=== PATIENT | female | born 1975 | race African-American/Black ===

== ENCOUNTER 2016-12-06 04:13 | Emergency (ER) | payer OTHER ==
[2016-12-06 04:30] VITALS: BP 162/100; PULSE 81; TEMP 98.1; BMI 34.7
[2016-12-06] MEDS ORDERED: FLUORESCEIN NA 1 EA STRIP ONE (04:48)
[2016-12-06] MEDS ORDERED: TETRACAINE 0.5% OPHTH SOLN 2 ML BOTTLE ONE (04:49)
[2016-12-06] MEDS ORDERED: GENTAMICIN SULFATE 0.3% OPHTHALMIC (EYE DROPS) 5ML BOTTLE OS ONE (04:58)
--- NOTE | 2016-12-06 04:58 | PDOC ---
[id number] No Limitations - History of Present Illness Initial Comments: 12/06/16 06:01 The patient is a 40-year-old female, with a significant past medical history of DM, kidney stones, and gallstones, who presents to the emergency department with dry eyes that began a day ago. The patient reports she forgot to put her eye drops in yesterday, before her eyes became itchy and dry. She states that she has been rubbing her eyes as a result, and her left eye has become swollen. The patient states she used artificial tears for these symptoms with no alleviation. The patient states she has experienced frequent episodes of erythematous and itchy eyes and consulted with her opthalmologist, Dr. Daniels, who said it was due to dryness. She reports difficulty sleeping and no change in appetite. The patient denies any recent travel. The patient denies any sick contacts. The patient denies fever, chills, cough, headache, and dizziness. Allergies: Penicillins Apprise Counselor: Dr. Daniels <Sabrina Norris - Last Filed: 12/06/16 06:01> <Marii Vasquez - Last Filed: 12/07/16 00:35> - General Chief Complaint: Eye Problem Stated Complaint: EYE PROBLEM Time Seen by Provider: 12/06/16 04:29 Past History <Sabrina Norris - Last Filed: 12/06/16 06:01> - Psycho/Social/Smoking Cessation Hx Suicidal Ideation: No Smoking History: Never smoked Have you smoked in the past 12 months: Yes Number of Cigarettes Smoked Daily: 10 'Breaking Loose' booklet given: 11/03/12 Hx Alcohol Use: No Drug/Substance Use Hx: No <Marii Vasquez - Last Filed: 12/07/16 00:35> - Past Medical History Allergies/Adverse Reactions: Allergies Allergy/AdvReac Type Severity Reaction Status Date / Time Penicillins Allergy Verified 12/06/16 04:25 Home Medications: Ambulatory Orders Amlodipine Besylate 10 mg PO DAILY 12/06/16 Hydrochlorothiazide [Hctz -] 25 mg PO DAILY 12/06/16 Metformin HCl [Glucophage] 500 mg PO BID 12/06/16 Ofloxacin 0.3% Ophth Soln [Ocuflox -] 1 drop OS Q6H #1 drops MDD 4 12/06/16 Review of Systems - Review of Systems Able to Perform ROS?: Yes Comments:: 12/06/16 06:02 GENERAL/CONSTITUTIONAL: No fever or chills. No weakness. HEAD, EYES, EARS, NOSE AND THROAT: +Dry, itchy, erythematous eyes. No change in vision. No ear pain or discharge. No sore throat. CARDIOVASCULAR: No chest pain or shortness of breath. RESPIRATORY: No cough, wheezing, or hemoptysis. GASTROINTESTINAL: No nausea, vomiting, diarrhea or constipation. GENITOURINARY: No dysuria, frequency, or change in urination. MUSCULOSKELETAL: No joint or muscle swelling or pain. No neck or back pain. SKIN: No rash NEUROLOGIC: No headache, vertigo, loss of consciousness, or change in strength/ sensation. ENDOCRINE: No increased thirst. No abnormal weight change. HEMATOLOGIC/LYMPHATIC: No anemia, easy bleeding, or history of blood clots. ALLERGIC/IMMUNOLOGIC: No hives or skin allergy. <Sabrina Norris - Last Filed: 12/06/16 06:01> *Physical Exam - Vital Signs Last Vital Signs Temp Pulse Resp BP Pulse Ox 98.1 F 81 19 162/100 98 12/06/16 04:28 12/06/16 04:28 12/06/16 04:28 12/06/16 04:28 12/06/16 04:28 - Physical Exam Comments: 12/06/16 06:02 GENERAL: The patient is awake, alert, and fully oriented, in no acute distress. +Obese HEAD: Normal with no signs of trauma. EYES:+Minimal redness of left eye conjunctiva. Pupils equal, round and reactive to light, extraocular movements intact, sclera anicteric. ENT: Ears normal, nares patent, oropharynx clear without exudates. Moist mucous membranes. NECK: Normal range of motion, supple without lymphadenopathy, JVD, or masses. LUNGS: Breath sounds equal, clear to auscultation bilaterally. No wheeze/ crackles. HEART: Regular rate and rhythm, normal S1 and S2 without murmur or rub. ABDOMEN: Soft/nontender/nondistended. BS wnl. No guarding or rebound. No palpable masses. No hepatosplenomegaly. EXTREMITIES: Normal range of motion, no edema. No clubbing or cyanosis. No cords, erythema, or tenderness. NEUROLOGICAL: Cranial nerves II through XII grossly intact. Normal speech, normal gait. PSYCH: Normal mood, normal affect. SKIN: Warm, Dry, normal turgor, no rashes or lesions noted. <Sabrina Norris - Last Filed: 12/06/16 06:01> - Vital Signs Last Vital Signs Temp Pulse Resp BP Pulse Ox 98.1 F 81 19 162/100 98 12/06/16 04:28 12/06/16 04:28 12/06/16 04:28 12/06/16 04:28 12/06/16 04:28 <Marii Vasquez - Last Filed: 12/07/16 00:35> ED Treatment Course - Medications Given in the ED: ED Medications Discontinued Medications Generic Name Dose Route Start Last Admin Trade Name Freq PRN Reason Stop Dose Admin Gentamicin Sulfate 1 drop 12/06/16 04:58 12/06/16 05:03 Gentamicin 0.3% Eye Drops - OS 12/06/16 04:59 1 drop ONCE ONE Administration <Sabrina Norris - Last Filed: 12/06/16 06:01> Medical Decision Making - Medical Decision Making 12/07/16 00:33 pt comes with conjuntivitis and states that she suffers with dry eyes and that she often itches her eyes so much that she ends up with corneal abrasions. She comes to make sure that she has no corneal abrasion. Her exam is normal. No fluorescine uptake. She will be treated with eyedrops for the conjunctivitis. <Marii Vasquez - Last Filed: 12/07/16 00:35> *DC/Admit/Observation/Transfer - Attestations Scribe Attestion: 12/06/16 06:02 Documentation prepared by Sabrina Norris, acting as medical science liaison for Marii Vasquez MD. <Sabrina Norris - Last Filed: 12/06/16 06:01> - Discharge Dispostion Admit: No <Marii Vasquez - Last Filed: 12/07/16 00:35> Diagnosis at time of Disposition: Conjunctivitis - Discharge Dispostion Disposition: HOME Condition at time of disposition: Stable - Referrals Referrals: Agueda Soria [Primary Care Provider] - - Patient Instructions Printed Discharge Instructions: Conjunctivitis
[2016-12-06] MEDS ORDERED: GENTAMICIN SULFATE 0.3% OPHTHALMIC (EYE DROPS) 5ML BOTTLE ONE (05:00)
== END 2016-12-06 05:06 | disposition home or self-care (01) ==
LOC: JER 04:13
DX: H10.33 Unspecified acute conjunctivitis, bilateral (principal); H04.123 Dry eye syndrome of bilateral lacrimal glands; E11.9 Type 2 diabetes mellitus without complications; Z79.84 Long term (current) use of oral hypoglycemic drugs; I10 Essential (primary) hypertension; F17.210 Nicotine dependence, cigarettes, uncomplicated
CPT/HCPCS: 99281-25

== ENCOUNTER 2016-12-06 14:11 | Emergency (ER) | payer OTHER ==
[2016-12-06 14:22] VITALS: BP 166/106; PULSE 92; TEMP 98.8
[2016-12-06] MEDS ORDERED: FLUORESCEIN NA 1 EA STRIP ONE ×2 (15:39→16:07)
--- NOTE | 2016-12-06 15:52 | PDOC ---
History of Present Illness - General Chief Complaint: Eye Problem Stated Complaint: LT EYE PAIN Time Seen by Provider: 12/06/16 15:06 History Source: Patient Exam Limitations: No Limitations - History of Present Illness Initial Comments: 12/06/16 15:32 My Chief Complaint: History of present illness: The patient is a 40-year-old female, with a significant past medical history of DM, kidney stones, and gallstones, dry eyes who presents to the emergency department with redness of left sclera and slight edema of left upper eyelid that started in early a.m. Patient reports that she was seen here was given tobramycin drops however patient reports that when she used her eye felt worse and left eyelid became slightly edematous. Patient also reports that she started to have photophobia, pain with blinking and tearing of her left eye. Patient usually say is Dr. Daniels for her eye condition. Timing/Duration: getting worse Severity: moderate (tearing and painful left eye with photophobia ) Associated Symptoms: reports: denies symptoms Past History - Past Medical History Allergies/Adverse Reactions: Allergies Allergy/AdvReac Type Severity Reaction Status Date / Time Penicillins Allergy Verified 12/06/16 14:18 Home Medications: Ambulatory Orders Amlodipine Besylate 10 mg PO DAILY 12/06/16 Hydrochlorothiazide [Hctz -] 25 mg PO DAILY 12/06/16 Metformin HCl [Glucophage] 500 mg PO BID 12/06/16 Ofloxacin 0.3% Ophth Soln [Ocuflox -] 1 drop OS Q6H #1 drops MDD 4 12/06/16 - Psycho/Social/Smoking Cessation Hx Suicidal Ideation: No Smoking History: Current every day smoker Have you smoked in the past 12 months: Yes Number of Cigarettes Smoked Daily: 3 Information on smoking cessation initiated: No 'Breaking Loose' booklet given: 11/03/12 Hx Alcohol Use: No Drug/Substance Use Hx: No Review of Systems - Review of Systems Able to Perform ROS?: Yes Constitutional: No: Symptoms Reported HEENTM: Yes: Eye Pain (left ), Tearing (left ), Other (photophobia). No: Blurred Vision, Recent change in vision, Double Vision Respiratory: No: Symptoms reported Cardiac (ROS): No: Symptoms Reported ABD/GI: No: Symptoms Reported : No: Symptoms Reported Musculoskeletal: No: Symptoms Reported Integumentary: Yes: Other (slight edema left upper eyelid) *Physical Exam - Vital Signs Last Vital Signs Temp Pulse Resp BP Pulse Ox 98.8 F 92 H 18 166/106 99 12/06/16 14:18 12/06/16 14:18 12/06/16 14:18 12/06/16 14:18 12/06/16 14:18 - Physical Exam General Appearance: Yes: Appropriately Dressed HEENT: positive: EOMI, PAYAL, TMs Normal, Photophobia (left eye), Other (left sclera injected, corneal abrasion noted laterally, minimal erythema left conjunctiva ) Neck: negative: Lymphadenopathy (R), Lymphadenopathy (L) Integumentary: positive: Swelling (left upper eyelid with minimal erythmea) Neurologic: positive: Alert, Normal Response, Responsive Procedures - Consent Consent obtained: From Patient - Eye Procedure Progress: 12/06/16 16:14 2 drops of Tetracaine 0.5% into left eye and used fluorescein stain and noted corneal abrasion left lateral eye Medical Decision Making - Medical Decision Making 12/06/16 15:52 The patient is a 40-year-old female, with a significant past medical history of DM, kidney stones, and gallstones, dry eyes who presents to the emergency department with redness of left sclera and slight edema of left upper eyelid that started in early a.m. Patient reports that she was seen here was given tobramycin drops however patient reports that when she used her eye felt worse and left eyelid became slightly edematous. Patient also reports that she started to have photophobia, pain with blinking and tearing of her left eye. Patient usually say is Dr. Daniels for her eye condition. Corneal abrasion left eye PLAN: ciprofloxacin 0.3% opth drop 1 drop now left eye than q 6 hrs for 5 days follow up with optholmologist as soon as possible 12/06/16 16:03 stop using gentamycin eye drops 12/06/16 16:14 12/06/16 16:15 12/06/16 16:15 *DC/Admit/Observation/Transfer Diagnosis at time of Disposition: Cornea abrasion Qualifiers: Encounter type: initial encounter Laterality: left Qualified Code(s): S05.02XA - Injury of conjunctiva and corneal abrasion without foreign body, left eye, initial encounter - Discharge Dispostion Disposition: HOME Condition at time of disposition: Stable - Prescriptions Prescriptions: Ofloxacin 0.3% Ophth Soln [Ocuflox -] 1 drop OS Q6H #1 drops MDD 4 - Referrals Referrals: Marva Porras MD [Primary Care Provider] - - Patient Instructions Additional Instructions: Use ciprofloxacin 0.3% ophthalmic drops 1 drop in left eye every 6 hours for 5 days Follow up with your rubber cutter and shape carver as soon as possible Return to emergency room if symptoms worsen stop using gentamycin eye drops Patient voiced understanding of discharge instructions and all questions were answered
[2016-12-06] MEDS ORDERED: CIPROFLOXACIN HCL 0.3% OPHTH 2.5ML BOTTLE ONE (15:59)
[2016-12-06] MEDS ORDERED: FLUORESCEIN NA 1 EA STRIP OS ONE (16:02)
[2016-12-07] MEDS ORDERED: CIPROFLOXACIN 0.3% EYE DROPS 5 ML BOTTLE OS SCH (10:00)
== END 2016-12-06 16:13 | disposition home or self-care (01) ==
LOC: JERFT 14:11
DX: S05.02XA Injury of conjunctiva and corneal abrasion without foreign body, left eye, initial encounter (principal); H04.123 Dry eye syndrome of bilateral lacrimal glands; F17.210 Nicotine dependence, cigarettes, uncomplicated; X58.XXXA Exposure to other specified factors, initial encounter; Y93.89 Activity, other specified; Y92.038 Other place in apartment as the place of occurrence of the external cause
CPT/HCPCS: 99281-25

== ENCOUNTER 2017-07-23 07:17 | Day surgery (SDC) | payer OTHER ==
[2017-07-21 14:55] VITALS: BMI 36.2
[2017-07-23] MEDS ORDERED: MIDAZOLAM HCL 2 MG/2 ML SINGLE DOSE VIAL ONE (09:09)
[2017-07-23] MEDS ORDERED: LIDOCAINE HCL 2% (20ML MULTI-DOSE VIAL) NR ONE (09:39)
[2017-07-23] MEDS ORDERED: BUPIVACAINE HCL/PF 0.5% (5MG/ML) 10 ML VIAL ONE (09:39)
[2017-07-23] MEDS ORDERED: LIDOCAINE HCL 1%, 10 MG/ML (20ML VIAL) IJ ONE (10:27)
[2017-07-23] MEDS ORDERED: CLINDAMYCIN PHOSPHATE 600 MG/4 ML VIAL IVPB ONE (10:30)
[2017-07-23] MEDS ORDERED: PROPOFOL 20 ML ONE (10:41)
[2017-07-23] MEDS: DEXAMETHASONE SOD PHOSPHATE 4 MG/1 ML VIAL ONE ×2 (10:48→10:59)
[2017-07-23] MEDS ORDERED: ONDANSETRON 4 MG/2 ML VIAL IVPUSH PRN (11:17)
[2017-07-23] MEDS ORDERED: oxyCODONE HCL 5 MG TABLET PO PRN (11:17)
[2017-07-23] MEDS ORDERED: KETOROLAC TROMETHAMINE 30 MG/1 ML VIAL IVPUSH ONE (11:17)
--- NOTE | 2017-07-23 11:28 | OP ---
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
[2017-07-23] MEDS ORDERED: LACTATED RINGERS SOLUTION 1,000 ML IV SCH (11:30)
[2017-07-23 11:51] VITALS: TEMP 98.2
[2017-07-23 13:50] VITALS: BP 147/94; PULSE 68
--- NOTE | 2017-07-26 14:55 | PATH ---
Surgical Pathology Report Patient Name: MICKIE DOE Med. Rec. #: [id number] /Age/Gender: 1975 (Age: 41) / F Account: [id number] Location: [facility] Taken: 07/23/2017 Received: 07/23/2017 Reported: 07/26/2017 Physicians: Rayna Roe DPM Specimen(s) Received BONE AND SKIN RIGHT 5TH TOE Clinical History Right 5th toe hammertoe Final Diagnosis BONE AND SKIN, RIGHT 5TH TOE, ARTHROPLASTY: BONE WITH DEGENERATIVE CHANGES. SKIN WITH HYPERKERATOSIS. Electronically Signed Viral Menard M.D. Gross Description Received in formalin, labeled "bone and skin right fifth toe" is 1.1 cm in greatest dimension fragment of vázquez bone and a 1.1 x 0.4 cm fragment of vázquez skin. Submitted entirely in one cassette following decalcification. AF/07/23/2017 final/07/23/2017
== END 2017-07-23 12:50 | disposition home or self-care (01) ==
LOC: JASU-SURG 07:17
PROVIDERS: ATTEND Podiatrist Foot Surgery
PROC: 0SRP0JZ Replacement of Right Toe Phalangeal Joint with Synthetic Substitute, Open Approach (ICD-10-PCS; principal; 2017-07-23 10:00)
DX: M20.41 Other hammer toe(s) (acquired), right foot (principal)
CPT/HCPCS: 84703; 88304-TC; 88311-TC; 94760

== ENCOUNTER 2023-01-22 08:50 | Day surgery (SDC) | payer OTHER ==
[2023-01-15 11:51] VITALS: BMI 32.7
[2023-01-22] MEDS ORDERED: LIDOCAINE HCL/PF 2% SDV 5ML VIAL ONE (10:00)
[2023-01-22] MEDS ORDERED: MIDAZOLAM HCL 2 MG/2 ML SINGLE DOSE VIAL ONE (10:01)
[2023-01-22] MEDS ORDERED: PROPOFOL 20 ML ONE (10:01)
[2023-01-22] MEDS ORDERED: BUPIVACAINE HCL/PF 0.25% (2.5MG/ML) 10 ML VIAL ONE (11:02)
[2023-01-22] MEDS ORDERED: LIDOCAINE HCL 1%, 10 MG/ML (20ML VIAL) ONE (11:02)
[2023-01-22] MEDS ORDERED: BUPIVACAINE HCL/PF 2.5 MG/ML - 30 ML VIAL IJ ONE (11:02)
[2023-01-22] MEDS ORDERED: ceFAZolin SODIUM 1 GM VIAL ONE (11:29)
[2023-01-22] MEDS ORDERED: DEXAMETHASONE SOD PHOSPHATE 4 MG/1 ML VIAL ONE (11:29)
[2023-01-22] MEDS ORDERED: ONDANSETRON 4 MG/2 ML VIAL ONE (11:49)
[2023-01-22] MEDS ORDERED: KETOROLAC TROMETHAMINE 30 MG/1 ML VIAL ONE (11:49)
[2023-01-22] MEDS ORDERED: BUPIVACAINE HCL/PF 0.25% (2.5MG/ML) 10 ML VIAL IJ ONE (11:50)
[2023-01-22] MEDS ORDERED: LIDOCAINE 1% P/F 10 MG/ML VIAL INF ONE (12:03)
[2023-01-22] MEDS ORDERED: PROMETHAZINE HCL 25 MG/1 ML VIAL IVPB PRN (12:27)
[2023-01-22] MEDS ORDERED: ONDANSETRON 4 MG/2 ML VIAL IVPUSH PRN (12:27)
[2023-01-22] MEDS ORDERED: oxyCODONE HCL 5 MG TABLET PO PRN ×2 (12:27)
[2023-01-22] MEDS ORDERED: ACETAMINOPHEN 1000 MG/100 ML BAG IVPB ONE (12:27)
[2023-01-22] MEDS ORDERED: LACTATED RINGERS SOLUTION 1,000 ML IV SCH (12:30)
[2023-01-22] MEDS ORDERED: ACETAMINOPHEN INJECTION 100 ML IVPB ONE (12:48)
[2023-01-22] MEDS ORDERED: FENTANYL CITRATE/PF 50 MCG/ML VIAL ONE (12:56)
[2023-01-22 14:43] VITALS: RESP 18
[2023-01-22 14:46] VITALS: BP 125/87; PULSE 75; TEMP 98
== END 2023-01-22 14:25 | disposition home or self-care (01) ==
LOC: FASU 08:50 → MERGE 08:50 → FASU 14:25
PROVIDERS: ATTEND Orthopaedic Surgery
PROC: 0SBC4ZZ Excision of Right Knee Joint, Percutaneous Endoscopic Approach (ICD-10-PCS; principal; 2023-01-22 11:39)
DX: S83.8X1A Sprain of other specified parts of right knee, initial encounter (principal); M65.861 Other synovitis and tenosynovitis, right lower leg; X58.XXXA Exposure to other specified factors, initial encounter; Y93.9 Activity, unspecified; Y92.9 Unspecified place or not applicable
CPT/HCPCS: 81025; 94760

== ENCOUNTER 2024-01-20 06:15 | Day surgery (SDC) | payer OTHER ==
[2024-01-20 06:52] VITALS: BMI 31.8
[2024-01-20] MEDS ORDERED: PROPOFOL 20 ML ONE ×2 (07:14→08:09)
[2024-01-20] MEDS ORDERED: MIDAZOLAM HCL 2 MG/2 ML SINGLE DOSE VIAL ONE ×3 (07:14→07:43)
[2024-01-20] MEDS ORDERED: LIDOCAINE HCL 1%, 10 MG/ML (20ML VIAL) ONE (07:19)
[2024-01-20] MEDS ORDERED: PROMETHAZINE HCL 25 MG/1 ML VIAL IVPB PRN (08:32)
[2024-01-20] MEDS: oxyCODONE HCL 5 MG TABLET PO PRN (08:38)
[2024-01-20] MEDS: ACETAMINOPHEN 500 MG TABLET (FP) PO ONE (08:38)
[2024-01-20] MEDS: KETOROLAC TROMETHAMINE 30 MG/1 ML VIAL IVPUSH ONE (08:40)
[2024-01-20] MEDS ORDERED: LACTATED RINGERS SOLUTION 1,000 ML IV SCH (08:45)
[2024-01-20 10:24] VITALS: RESP 16; TEMP 97.8
[2024-01-20 10:35] VITALS: BP 135/79; PULSE 76
== END 2024-01-20 10:10 | disposition home or self-care (01) ==
LOC: FASU 06:15
PROVIDERS: ATTEND Orthopaedic Surgery
PROC: 0J8R3ZZ Division of Left Foot Subcutaneous Tissue and Fascia, Percutaneous Approach (ICD-10-PCS; principal; 2024-01-20 07:30)
DX: M72.2 Plantar fascial fibromatosis (principal)
CPT/HCPCS: 81025; 82962; 94760

== ENCOUNTER 2024-07-31 00:19 | Emergency (ER) | payer OTHER ==
[2024-07-31 00:31] VITALS: BP 159/88; PULSE 82; RESP 18; TEMP 98.6; BMI 31.6
[2024-07-31] MEDS ORDERED: ACETAMINOPHEN 500 MG TABLET (FP) ONE (00:51)
[2024-07-31] MEDS ORDERED: LIDOCAINE 4% PATCH TP ONE (00:52)
[2024-07-31] MEDS ORDERED: METHOCARBAMOL 500 MG TABLET ONE (00:52)
[2024-07-31] MEDS: LIDOCAINE 4% PATCH TP ONE (00:55)
[2024-07-31] MEDS: ACETAMINOPHEN 500 MG TABLET (FP) PO ONE (00:55)
[2024-07-31] MEDS: METHOCARBAMOL 750 MG TAB PO ONE (00:56)
[2024-07-31] MEDS ORDERED: KETOROLAC TROMETHAMINE 30 MG/1 ML VIAL ONE (01:44)
[2024-07-31] MEDS ORDERED: DEXAMETHASONE SOD PHOSPHATE 10 MG/1 ML VIAL ONE (01:45)
[2024-07-31] MEDS: KETOROLAC TROMETHAMINE 30 MG/1 ML VIAL IM ONE (01:49)
[2024-07-31] MEDS: DEXAMETHASONE LIQUID 0.5 MG/5 ML PO ONE (01:49)
== END 2024-07-31 02:49 | disposition home or self-care (01) ==
LOC: JER 00:19
PROC: 3E0133Z Introduction of Anti-inflammatory into Subcutaneous Tissue, Percutaneous Approach (ICD-10-PCS; principal; 2024-07-31)
DX: M54.50 Low back pain, unspecified (principal); G89.29 Other chronic pain; M25.552 Pain in left hip
CPT/HCPCS: 99284-25

== ENCOUNTER → 2024-09-14 | Day surgery (SDC) | payer OTHER ==
[2024-09-12 15:09] VITALS: BMI 30.3
[~2024-09-14] MED LIST: ACETAMINOPHEN 500 MG TABLET (FP) PO PRN
[2024-09-14 10:20] VITALS: BP 184/98; PULSE 92; RESP 20; TEMP 97.1
== END | disposition home or self-care (01) ==
LOC: JASU-SURG 04:23
PROVIDERS: ATTEND Pain Medicine Pain Medicine
DX: Z53.9 Procedure and treatment not carried out, unspecified reason (principal)
CPT/HCPCS: 81025

== ENCOUNTER 2024-09-28 03:53 | Day surgery (SDC) | payer OTHER ==
[2024-09-26 14:22] VITALS: BMI 31.8
[2024-09-28] MEDS ORDERED: BUPIVACAINE HCL/PF 0.5% (5MG/ML) 10 ML VIAL ONE (07:17)
[2024-09-28] MEDS ORDERED: LIDOCAINE HCL/PF 1% SDV 5ML VIAL ONE (07:17)
[2024-09-28] MEDS ORDERED: ACETAMINOPHEN 500 MG TABLET (FP) PO PRN (09:18)
[2024-09-28 09:56] VITALS: PULSE 76; RESP 18; TEMP 97.3
[2024-09-28 10:44] VITALS: BP 140/70
== END 2024-09-28 10:30 | disposition home or self-care (01) ==
LOC: JASU-SURG 03:53
PROVIDERS: ATTEND Pain Medicine Pain Medicine
PROC: 3E0T3BZ Introduction of Anesthetic Agent into Peripheral Nerves and Plexi, Percutaneous Approach (ICD-10-PCS; principal; 2024-09-28 10:00)
DX: M47.812 Spondylosis without myelopathy or radiculopathy, cervical region (principal)
CPT/HCPCS: 76000-TC-FY; 81025

== ENCOUNTER 2024-11-03 04:04 | Day surgery (SDC) | payer OTHER ==
[2024-10-31 12:55] VITALS: BMI 31.8
[2024-11-03] MEDS ORDERED: LIDOCAINE HCL/PF 1% SDV 5ML VIAL ONE (07:20)
[2024-11-03] MEDS ORDERED: BUPIVACAINE HCL/PF 0.5% (5MG/ML) 10 ML VIAL ONE (07:20)
[2024-11-03 09:00] VITALS: TEMP 98
[2024-11-03] MEDS ORDERED: MIDAZOLAM HCL 2 MG/2 ML SINGLE DOSE VIAL ONE (11:22)
[2024-11-03] MEDS ORDERED: KETAMINE HCL 200 MG/20 ML VIAL ONE (11:23)
[2024-11-03 12:35] VITALS: BP 145/71; PULSE 82; RESP 18
== END 2024-11-03 12:38 | disposition home or self-care (01) ==
LOC: JASU-SURG 04:04
PROVIDERS: ATTEND Pain Medicine Pain Medicine
PROC: 3E0T33Z Introduction of Anti-inflammatory into Peripheral Nerves and Plexi, Percutaneous Approach (ICD-10-PCS; 2024-11-03)
PROC: 3E0T3BZ Introduction of Anesthetic Agent into Peripheral Nerves and Plexi, Percutaneous Approach (ICD-10-PCS; principal; 2024-11-03 11:45)
DX: M47.812 Spondylosis without myelopathy or radiculopathy, cervical region (principal)
CPT/HCPCS: 76000-TC-FY; 81025; 82962

== ENCOUNTER 2025-03-27 09:41 | Day surgery (SDC) | payer OTHER ==
[2025-03-23 11:07] VITALS: BMI 30.9
[2025-03-27] MEDS ORDERED: DEXAMETHASONE SOD PHOSPHATE 4 MG/1 ML VIAL ONE (09:51)
[2025-03-27] MEDS ORDERED: ONDANSETRON 4 MG/2 ML VIAL ONE (09:51)
[2025-03-27] MEDS ORDERED: PROPOFOL 40 ML ONE (09:52)
[2025-03-27] MEDS ORDERED: MIDAZOLAM HCL 2 MG/2 ML SINGLE DOSE VIAL ONE (09:52)
[2025-03-27] MEDS ORDERED: oxyCODONE HCL 5 MG TABLET PO PRN (10:00)
[2025-03-27] MEDS ORDERED: LACTATED RINGERS SOLUTION 1,000 ML IV SCH (10:00)
[2025-03-27] MEDS ORDERED: ONDANSETRON 4 MG/2 ML VIAL IVPUSH PRN (10:00)
[2025-03-27] MEDS ORDERED: DEXAMETHASONE SOD PHOSPHATE 10 MG/1 ML VIAL ONE (10:10)
[2025-03-27] MEDS ORDERED: ROPIVACAINE HCL/PF 100 MG/20 ML VIAL ONE (10:10)
[2025-03-27] MEDS ORDERED: ACETAMINOPHEN INJECTION 100 ML ONE (10:10)
[2025-03-27] MEDS ORDERED: BUPIVACAINE HCL/PF 0.25% (2.5MG/ML) 10 ML VIAL ONE (10:56)
[2025-03-27] MEDS ORDERED: PROPOFOL 80 ML ONE (12:58)
[2025-03-27 14:57] VITALS: RESP 18
[2025-03-27 15:08] VITALS: TEMP 97.5
[2025-03-27 16:06] VITALS: BP 110/65; PULSE 75
== END 2025-03-27 15:40 | disposition home or self-care (01) ==
LOC: FASU 09:41
PROVIDERS: ATTEND Orthopaedic Surgery Sports Medicine
PROC: 0PBB4ZZ Excision of Left Clavicle, Percutaneous Endoscopic Approach (ICD-10-PCS; principal; 2025-03-27 13:02)
PROC: 0RBK4ZZ Excision of Left Shoulder Joint, Percutaneous Endoscopic Approach (ICD-10-PCS; 2025-03-27 13:02)
DX: M75.112 Incomplete rotator cuff tear or rupture of left shoulder, not specified as traumatic (principal); M19.012 Primary osteoarthritis, left shoulder; M75.52 Bursitis of left shoulder; M65.912 Unspecified synovitis and tenosynovitis, left shoulder
CPT/HCPCS: 81025; 94760; J0131; J1100